=== PATIENT | female | born 2000 | race Asian ===

== ENCOUNTER 2019-03-09 18:06 | Inpatient (IN) | payer OTHER ==
--- NOTE | 2019-03-09 18:41 | ED ---
Psychiatric Complaint - HPI Summary HPI Summary: Patient is a 19 y/o F presenting to the ED for a psychiatric complaint. Patient is currently receiving counselling at [facility] and told the psychiatrist of her SI who recommended the patient be seen at [facility]. She has had counselling sessions for her MH issues since late December. Patient has a plan to self- harm by cutting. Patient had a previous attempt to starve herself by not eating for 2 days. Patient states she does not want to attend her classes, decreased appetite, and does not want to wake up from sleeping. Patient denies fever, myalgia, or headache. Patient feels she is disappointing her mother and friends. PMHx is significant for depression. Patient denies drug use. Patient takes oral contraceptives and vitamin D supplements. Patient lives with her mother. - History Of Current Complaint Chief Complaint: EDSuicidal Time Seen by Provider: 03/09/19 18:24 Hx Obtained From: Patient Onset/Duration: Gradual Onset, Still Present Timing: Constant Severity Initially: Moderate Severity Currently: Moderate Character: Depressed Aggravating Factor(s): Recent Stress Alleviating Factor(s): Nothing Associated Signs And Symptoms: Positive: Negative Related History: Positive For: Prior Psychiatric Issues Has Suicidal: Reports: Thoughts, With A Plan, Has Prior Attempt(s) - Allergies/Home Medications Allergies/Adverse Reactions: Allergies Allergy/AdvReac Type Severity Reaction Status Date / Time No Known Allergies Allergy Verified 03/09/19 18:26 Home Medications: Home Medications Cholecalciferol (Vitamin D3) [Vitamin D3] 50,000 unit PO WEEKLY 03/09/19 [ History Confirmed 03/09/19] Levonorgestrel-Ethin Estradiol [Aubra] 1 tab PO DAILY 03/09/19 [History Confirmed 03/09/19] PMH/Surg Hx/FS Hx/Imm Hx Previously Healthy: Yes Endocrine/Hematology History: Denies: Hx Diabetes Cardiovascular History: Denies: Hx Hypercholesterolemia, Hx Hypertension, Hx Pacemaker/ICD Sensory History: Denies: Hx Legally Blind, Hx Deafness Opthamlomology History: Denies: Hx Legally Blind EENT History: Denies: Hx Deafness - Surgical History Surgical History: None Surgery Procedure, Year, and Place: None Infectious Disease History: No Infectious Disease History: Denies: Traveled Outside the [place] in Last 30 Days - Family History Known Family History: Negative: Diabetes - Social History Occupation: Student Lives: With Family Alcohol Use: None Hx Substance Use: No Substance Use Type: Reports: None Hx Tobacco Use: No Smoking Status (MU): Never Smoked Tobacco Review of Systems Negative: Fever Negative: Myalgia Negative: Headache Positive: Depressed, Other - Positive SI with plan; history of attempt All Other Systems Reviewed And Are Negative: Yes Physical Exam - Summary Physical Exam Summary: Constitutional: Well-developed, Well-nourished, Alert. (-) Distressed Skin: Warm, Dry HENT: Normocephalic; Atraumatic Eyes: Conjunctiva normal Neck: Musculoskeletal ROM normal neck. (-) JVD, (-) Stridor, (-) Tracheal deviation Cardio: Rhythm regular, rate normal, Heart sounds normal; Intact distal pulses; The pedal pulses are 2+ and symmetric. Radial pulses are 2+ and symmetric. Pulmonary/Chest wall: Effort normal. (-) Respiratory distress, (-) Wheezes, (-) Rales Abd: Soft, (-) tenderness, (-) Distension, (-) Guarding, (-) Rebound Musculoskeletal: (-) Edema Neuro: Alert, Oriented x3 Psych: Mood and affect Normal Triage Information Reviewed: Yes Vital Signs On Initial Exam: Initial Vitals Temp Pulse Resp BP Pulse Ox 99.7 F 77 16 103/75 97 03/09/19 18:09 03/09/19 18:09 03/09/19 18:09 03/09/19 18:09 03/09/19 18:09 Vital Signs Reviewed: Yes Procedures - Sedation Patient Received Moderate/Deep Sedation with Procedure: No Diagnostics - Vital Signs Vital Signs Temp Pulse Resp BP Pulse Ox 03/09/19 18:09 99.7 F 77 16 103/75 97 - Laboratory Lab Statement: Any lab studies that have been ordered have been reviewed, and results considered in the medical decision making process. Re-Evaluation - Re-Evaluation First Re-Evaluation Time: 18:40 Change: Unchanged Comment: At 18:40, patient is medically clear for a MH evaluation. Course/Dx - Course Course Of Treatment: Patient is a 19 y/o F presenting to the ED for a psychiatric complaint. Patient is currently receiving counselling at [facility] and told the psychiatrist of her SI who recommended the patient be seen at [facility]. She has had counselling sessions for her MH issues since late December. Patient has a plan to self-harm by cutting. Patient had a previous attempt to starve herself by not eating for 2 days. Patient states she does not want to attend her classes, decreased appetite, and does not want to wake up from sleeping. Patient denies fever, myalgia, or headache. Patient feels she is disappointing her mother and friends. PMHx is significant for depression. Patient denies drug use. Patient takes oral contraceptives and vitamin D supplements. Patient lives with her mother. On exam, unremarkable findings. At 18:40, patient is medically clear for a MH evaluation. Patient will be a sign-out at 19:00 on 03/09/[address] Jerome Pretty MD from Dr. Morgan Santizo MD at shift change, pending MH evaulation and disposition. - Differential Dx/Clinical Impression Provider Diagnosis: Suicidal ideation Discharge ED - Sign-Out/Discharge Documenting (check all that apply): Sign-Out Patient Signing out patient TO: Jerome Pretty - 19:00 on 03/09/19 - Discharge Plan - Attestation Statements Document Initiated by Scribe: Yes Documenting Scribe: Mary Palacio Provider For Whom Rigobertoibe is Documenting (Include Credential): Morgan Santizo MD Scribe Attestation: I, Mary Palacio, scribed for Morgan Santizo MD on 03/09/19 at 1842. Status of Scribe Document: Ready
[2019-03-09 18:57] LABS: Urine Appearance Clear; Urine Bacteria 1+ (Absent); Urine Bilirubin Negative (Negative); Urine Blood 1+ (Negative); Urine Color Straw; Urine Glucose Negative (Negative); Urine Ketones Negative (Negative); Urine Nitrite Negative (Negative); Urine Protein Negative (Negative); Urine Red Blood Cell Trace(0-2/hpf) (Absent); Urine Specific Gravity 1.009 (1.010-1.030); Urine Squamous Epithelial Cell Present (Absent); Urine Urobilinogen Negative (Negative); Urine White Blood Cell Trace(0-5/hpf) (Absent)
[2019-03-09 19:03] LABS: ABS Basophils 0.1 10^3/ul (0-0.2); ABS Eosinophils 0.1 10^3/ul (0-0.6); ABS Lymphocytes 1.8 10^3/ul (1.0-4.8); ABS Monocytes 0.4 10^3/ul (0-0.8); ABS Neutrophils 3.3 10^3/ul (1.5-7.7); Eosinophil % 1.8 %; Hematocrit 36 % (35-47); Hemoglobin 12.8 g/dL (12.0-16.0); Mean Corpuscular HGB Conc 35 g/dL (31-36); Mean Corpuscular Hemoglobin 32 pg (27-31); Mean Corpuscular Volume 90 fL (80-97); Mean Platelet Volume 5.9 fL (7.4-10.4); Platelet Count 362 10^3/uL (150-450); Red Blood Count 4.04 10^6 /uL (3.70-4.87); Red Cell Distribution Width 13 % (10-15); White Blood Count 5.7 10^3/uL (3.5-10.8)
--- NOTE | 2019-03-09 19:13 | ED ---
Progress - Progress Note Progress Note: Patient is received as a sign-out from Dr. Santizo to Dr. Pretty at 1900 shift change pending MHE of this mental health patient. 0150 - crystal evaluator Yuri reports that the patient's case had been reviewed by Dr. Ashton. Patient will be transferred to another psychiatric facility due to full unit census at [facility]. Re-Evaluation - Re-Evaluation First Re-Evaluation Time: 18:40 Change: Unchanged Comment: At 18:40, patient is medically clear for a MH evaluation. Course/Dx - Course Course Of Treatment: Patient is received as a sign-out from Dr. Santizo to Dr. Pretty at 1900 03/09/19 shift change pending MHE of this mental health patient. 0150 - crystal evaluator Yuri reports that the patient's case had been reviewed by Dr. Ashton. Patient will be transferred to another psychiatric facility due to full unit census at [facility]. Patient remained stable throughout shift. Patient is signed out to Dr. Moore at 0700 03/10/19 shift change pending accepting psychiatric facility of this mental health patient. - Diagnoses Provider Diagnoses: Depression - Provider Notifications Discussed Care Of Patient With: Vu Ashton Time Discussed With Above Provider: 01:50 Instructed by Provider To: Other - 0150 - crystal evaluator Yuri reports that the patient's case had been reviewed by Dr. Ashton. Patient will be transferred to another psychiatric facility due to full unit census at [facility]. Discharge ED - Sign-Out/Discharge Documenting (check all that apply): Sign-Out Patient, Receiving Sign-Out Signing out patient TO: Lillian Moore Receiving patient FROM: Morgan Santizo - Discharge Plan Condition: Stable Disposition: [facility]YCHIATRIC FACILITY[place] [place] - Billing Disposition and Condition Condition: STABLE Disposition: Psychiatric Facility [facility] - Attestation Statements Document Initiated by Keila: Yes Documenting Scribe: JUAN MORA Provider For Whom Keila is Documenting (Include Credential): SAM PRETTY MD Scribe Attestation: JUAN Foy scribed for SAM PRETTY MD on 03/10/19 at 1908. Scribe Documentation Reviewed: Yes Provider Attestation: The documentation as recorded by the JUAN marroquin accurately reflects the service I personally performed and the decisions made by me, SAM PRETTY MD Status of Scribe Document: Viewed
[2019-03-09 19:25] LABS: Anion Gap 5 mmol/L (2-11); Blood Urea Nitrogen 10 mg/dL (6-24); CO2 Carbon Dioxide 24 mmol/L (22-32); Calcium 8.9 mg/dL (8.6-10.3); Chloride 105 mmol/L (101-111); EGFR African American 115.6 (>60); EGFR Non-African American 95.6 (>60); Glucose 89 mg/dL (70-100); Potassium 3.9 mmol/L (3.5-5.0); Sodium 134 mmol/L (135-145)
[2019-03-09 19:32] LABS: HCG Pregnancy < 0.60 mIU/mL
[2019-03-09 19:56] LABS: Acetaminophen < 15 mcg/mL; Alcohol < 10 mg/dL (<10); Salicylate < 2.50 mg/dL (<30)
--- NOTE | 2019-03-10 07:22 | ED ---
Progress - Progress Note Progress Note: This pt is a sign out from Dr. Pretty to Dr. Moore pending transfer to another psychiatric facility. Course/Dx - Course Course Of Treatment: Pt was signed out by Dr. Pretty pending transfer to another psychiatric facility. Per mental health electrician manager, due to bed avail[place] now [place] [facility] [place] be [place] [facility] on a voluntary status by Dr. Ashton, psychiatrist. Dx: unspecified depression. - Diagnoses Provider Diagnoses: Depression Discharge ED - Sign-Out/Discharge Documenting (check all that apply): Patient Departure - Admit to [facility], Receiving Sign-Out Receiving patient FROM: Jerome Pretty - Discharge Plan Condition: Stable Disposition: [place]IATRIC [place] Referrals: No Primary Care Phys,NOPCP [Primary Care Provider] - - Billing Disposition and Condition Condition: STABLE Disposition: Psychiatric Facility [facility] - Attestation Statements Document Initiated by Rigobertoibe: Yes Documenting Scribe: Chelsea Pinzon Provider For Whom Scribe is Documenting (Include Credential): Lillian Moore MD Scribe Attestation: Chelsea Foy scribed for Lillian Moore MD on 03/10/19 at 1325. Scribe Documentation Reviewed: Yes Provider Attestation: The documentation as recorded by the Chelsea marroquin accurately reflects the service I personally performed and the decisions made by Lillian villarreal MD Status of Scribe Document: Viewed
[2019-03-10] MEDS: LEVONORGESTREL ETH ESTRAD PO SCH (11:17)
[2019-03-10] MEDS ORDERED: Acetaminophen TAB* 325 MG PO PRN (11:46)
[2019-03-10] MEDS ORDERED: Al Hydrox/Mg Hydrox/Simet LIQ* 30 ML UDC PO PRN (11:46)
[2019-03-10] MEDS ORDERED: hydrOXYzine HCL TAB* 50 MG PO PRN (11:48)
[2019-03-10] MEDS ORDERED: CHOLECALCIFEROL 50000 UNIT PO SCH (12:00)
[2019-03-11] MEDS: LEVONORGESTREL ETH ESTRAD PO SCH (11:21)
[2019-03-11] MEDS: Escitalopram * 5 MG TAB PO SCH (18:01)
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
[2019-03-12] MEDS: Escitalopram * 5 MG TAB PO SCH (09:28)
[2019-03-13] MEDS: Escitalopram * 5 MG TAB PO SCH (07:53)
--- NOTE | 2019-03-13 13:25 | PN ---
Subjective - Subjective Date of Service: 03/13/19 Service Type: [id number] Hosp care 35 min high complexity Subjective: "Dede" describes yesterday (Wednesday) as "the best day." She had a pleasant day interacting with other patients, did a puzzle, and has a visit with her mother wherein they didn't fight, which is unusual. She feels like if she could do entertaining and relaxing things all day, everything would be better. She states , "I feel like I need a break from school" and "Is [facility] the right place for me?" She struggles with the idea that she should be independent, but in conversation it becomes clear that she doesn't want to be alone and independent: she would rather be with her boyfriend or people who don't talk about school so much. She also names stressors such as academics and peer pressure as problems. She states her friends are supportive and competitive at the same time. As she was becoming more desperate for help, she started being unable to focus and was missing classes and falling behind in work. Objective - General Observations Appearance: Neat Appears Stated Age: Yes Stature: Thin Posture: WNL Eye Contact: Average Behavior/Activity: WNL - Interaction Observations Attitude Towards Examiner: Cooperative, Anxious Stated Mood: Anxious, Silly Affect: Restricted, Bright Speech Pattern/Tone: Clear Thought Process: Coherent, Goal Directed Perception: WNL Thought Content: Preoccupation/Ruminations, Depressive Hallucination Type: None Delusion Type: None - Cognitive Function Orientation: A&O x 4 Level of Consciousness: Awake, Alert, Appropriate Cognition: WNL Estimated Intelligence: Normal Insight: WNL Judgment Within Normal Limits: No Ability to Make Reasonable Decisions: Moderately Impaired - Medication Compliance Cooperative with Inpatient Medication Regimen: Yes - Group Participation Participates in Group Activities: Yes Assessment - Assessment Merits Inpatient Hospitalization: For Immediate Safety Clinical Impression: Carmelo Enriquez" is a 19-year-old [place] woman who is a sophomore at [employer] who is overwhelmed by the quantity and quality of work she must do as well as episodes of depression. Plan - Plan Treatment Plan: Name: CARMELO PARDO Birthdate: 2000 [id number] 03/13/19 Dede will work on a decisional balance sheet to help her determine if she wants to stay or take a leave. This will be reviewed tomorrow with high likelihood that she will be discharged, as well. Medications: Current Medications Acetaminophen (Tylenol Tab*) 650 mg PO Q4H PRN PRN Reason: for pain; or Temp >101 F Al Hydrox/Mg Hydrox/Simethicone (Maalox Plus*) 30 ml PO Q4H PRN PRN Reason: INDIGESTION Escitalopram Oxalate (Lexapro *) 5 mg PO DAILY [facility] Last Admin: 03/13/19 07:53 Dose: 5 mg Hydroxyzine HCl (Atarax Tab*) 50 mg PO Q6H PRN PRN Reason: anxiety Non-Formulary Medication (Cholecalciferol (Vitamin D3) [Vitamin D3]) 50,000 unit PO WEEKLY [facility] Pto:Levonorgestrel- Ethin Estradiol [ Aubra-28 Tablet] 1 Tab) 1 tab PO DAILY [facility] Last Admin: 03/13/19 07:53 Dose: 1 tab - Discharge Plan Discharge Plan: Outpatient Follow Up Outpatient Program: Counseling/Psych Services at [facility]
[2019-03-14] MEDS: Escitalopram * 5 MG TAB PO SCH (08:49)
[2019-03-14 11:24] VITALS: BP 94/70
--- NOTE | 2019-03-14 19:00 | DS ---
DISCHARGE SUMMARY: DATE OF ADMISSION: 03/10/19 DATE OF DISCHARGE: 03/14/19 PROVIDER: Suzie Villar NP, Psychiatry. SUPERVISING PHYSICIAN: Dr. Vu Ashton.* (DICTATED BY SUZIE VILLAR NP) DIAGNOSIS: Major depressive disorder, recurrent, moderate. CONDITION AT THE TIME OF DISCHARGE: Improved, psychiatrically cleared, stable. Participated in groups and was social with peers. Her mother who came to see her is agreeable to discharge as is Carmelo"Dede." She has done well here psychiatrically. She tolerated the addition of Lexapro well. She will be attending [facility]. MENTAL STATUS EXAMINATION: At the time of discharge, Dede is calm, cooperative , and makes good eye contact. She is alert and oriented x4. Her grooming is good. Her speech pace is normal. Her thought processes are logical. She is not psychotic or delusional. She denies AH, VH, SI, and HI. Insight and judgment are good. She is willing to follow up and she is urged to see a therapist. DISCHARGE INSTRUCTIONS TO THE PATIENT: A. Medications: 1. Vitamin D3 50,000 units weekly. 2. Lexapro 5 mg daily, dispensed 30 to [facility]. 3. Hydroxyzine 50 mg tablet p.o. q.6 hours p.r.n. anxiety, dispensed 60 to [facility]. 4. Aubra - 28 tablets 1 tab daily. B. Diet is regular. C. Activities: As tolerated. Dede is a nonsmoker. There are no studies pending at the time of discharge. D. Followup care: She has appointments at [facility]. She has a psychiatric appointment with Holly Saxena MD, on 03/14/19 at 2:30. Her office is located on level 7 at [facility]. She also has an appointment with Rachel Grey NP, on 03/14/19 at 3:15. Her office is located on level 7 at [facility]. That referral to Medical is related to her thyroid function which appears to be somewhat impaired with TSH greater than 7. E. Disposition: She is being sent back home to her apartment off campus. F. Substance abuse followup is not indicated. HOSPITAL COURSE: Part A: Chief complaint: "I met with the psychiatrist Dr. Saxena for the first time and I told her about my thoughts of suicide and my previous attempts and she referred me here!" The patient relates having a history of recurrent brief depressive episodes since her senior year of high school, but explains that her symptoms have much worsened since starting college in general and have been consistently worsening in the last 2 to 3 months. She started seeing a therapist at [facility] and yesterday she met with Dr. Holly Saxena, psychiatrist, and admitted that she was having thoughts of suicide. She had contemplated stabbing herself to or poisoning herself with carbon monoxide. She had engaged in some self- scratching behavior to relieve stress. The patient endorses on most days for the most part of the day feeling sad or irritable with decreased interest, self- isolating, crying spells, decreased motivation, insomnia, difficulty getting out of bed in the morning, daytime tiredness, impaired attention and concentration, decreased appetite, inconsistent attendance in class, decline in her grades, passive wish, and feelings of helplessness. Additionally, she describes excessive worrying especially about exam, irritability, feeling on edge, sensitivity to perceived criticism, and recurrent panic attacks. She has not been on any medication previously. She describes stressors of uncertainty about her future. She is now considering taking a semester off from college or even changing school altogether. She has difficulty managing her schoolwork, although she is still passing all her classes. She described a periodically strained relationship with her mother, who she finds "controlling. " Part B: Psychiatric treatment was rendered. Dede was admitted to the adult behavioral unit and placed on 15-minute checks for her own safety. Dede did well on the unit and went to groups. She interacted with peers well. She did tolerate the addition of hydroxyzine and Lexapro. She believed that the Lexapro had very quickly (two days) made her feel better and she worried that going back to [place] she would not be able to find the same medication. I did reassure that it was likely that this medication was available in [place], and also that she is the powerful one responsible for her greater happiness now that she is not under as many stressors as she is at school. Dede found that when she did a decisional balance sheet regarding whether she should stay at [facility] or leave [facility], she did not come to a conclusion, but was able to enumerate the details of what her thought processes were. She also did extra work to show the things that brought her lukas and that she wanted to do more of, essentially making a list of rules for happiness and positive thinking. Her laboratory values for her TSH were 7.6, her T4 level was 9.47. I advised her to follow up regarding these findings and she agreed. Her mother came to pick her up, but I did not have an opportunity to speak with her. No consults were entered. Dede is much improved. She is no longer suicidal. She has more energy. She feels hope that her future could be different than it is right now. Although she is doing well enough in school, she finds the pressures to be too great and she made a determination that she would attempt to do the best she could but not overstress herself. This does sound like a healthy change from what she was undergoing and may have been causing her suicidal thoughts. She is future oriented and eager to go home with her mother to her apartment. SUZIE VILLAR, [place] [id number]/CPS #: [id number] KENDRA
== END 2019-03-14 12:20 | disposition home or self-care (01) | DRG 885 ==
LOC: ED 18:06 → BSU 03-10 11:46
PROVIDERS: ADMIT Psychiatry & Neurology Psychiatry; ATTEND Psychiatry & Neurology Psychiatry
DX: F33.1 Major depressive disorder, recurrent, moderate (principal); R45.851 Suicidal ideations; F41.9 Anxiety disorder, unspecified; Z81.8 Family history of other mental and behavioral disorders
CPT/HCPCS: 36415; 80048; 80320; 80329; 81003; 81015; 84436; 84443; 84702; 85025; 87086; 99222; 99233; 99238; 99285; G0480